=== PATIENT | female | born 2000 | race Caucasian/White ===

== ENCOUNTER 2019-04-06 02:40 | Emergency (ER) | payer MEDICAID ==
[~2019-04-06] VITALS: Ht 152.4 cm; Wt 45.0 kg
[2019-04-06] MEDS ORDERED: SODIUM CHLORIDE 0.9% 1,000 ML IV ONE (03:34)
[2019-04-06] MEDS ORDERED: ACETAMINOPHEN 325MG TABLET PO PRN (03:45)
[2019-04-06 04:12] LABS: BASOPHILS % 0.6 % (0.0-2.0); EOSINOPHILS % 1.6 % (0.0-5.0); HEMATOCRIT. 40.7 % (36.0-48.0); HEMOGLOBIN. 13.5 g/dL (12.0-16.0); LYMPHOCYTES % 27.4 % (20.0-50.0); MEAN CORPUSCULAR HEMOGLOBIN 30.1 pg (28.0-32.0); MEAN CORPUSCULAR VOLUME 90.9 fL (81.0-99.0); NEUTROPHILS % 63.4 % (40.0-76.0); PLATELET 389 x1000/uL (130-400); RED BLOOD CELL COUNT 4.48 mill/uL (4.2-5.4); RED CELL DISTRIBUTION WIDTH 13.9 % (11.6-14.6)
[2019-04-06 04:13] LABS: CHLORIDE 104 mEq/L (98-107)
[2019-04-06 04:58] LABS: CLARITY URINE TURBID (CLEAR); COLOR URINE YELLOW (YELLOW); KETONES URINE NEGATIVE (NEGATIVE); LEUKOCYTE ESTERASE URINE 2+ (NEGATIVE); NITRITE URINE NEGATIVE (NEGATIVE); OCCULT BLOOD URINE NEGATIVE (NEGATIVE); PH URINE >=9.0 (4.5-8.0); PROTEIN URINE 1+ (NEGATIVE); SPECIFIC GRAVITY URINE 1.017 (1.005-1.030); UROBILINOGEN URINE 0.2 E.U./dL (0.2-1.0)
[2019-04-06 06:47] VITALS: BP 119/70
[2019-04-11 07:07] LABS: CHLAMYDIA TRACHOMATIS NAA Negative (Negative); NEISSERIA GONORRHOEAE NAA Negative (Negative)
== END 2019-04-06 07:19 | disposition home or self-care (01) ==
LOC: ER 02:40
DX: R10.32 Left lower quadrant pain (principal); R11.0 Nausea; F12.10 Cannabis abuse, uncomplicated
CPT/HCPCS: 36415; 76830; 76856; 80053; 81003; 81025; 85025; 87077; 87086; 87210; 87491; 87591; 99284; J7030; Z7610

== ENCOUNTER 2020-09-14 22:38 | Emergency (ER) | payer MEDICAID ==
[~2020-09-14] VITALS: Ht 152.4 cm; Wt 45.0 kg
[2020-09-14] MEDS ORDERED: KETOROLAC 60MG/2ML VIAL IM STA (23:01)
[2020-09-14] MEDS ORDERED: VISCOUS LIDOCAINE 2% 15 ML UDC PO STA (23:01)
[2020-09-14] MEDS ORDERED: MAGNESIUM/ALUMINUM HYDROXIDE/SIMETHICONE 30ML UDC PO STA (23:01)
[2020-09-14 23:17] LABS: BASOPHILS % 0.7 % (0.0-2.0); EOSINOPHILS % 1.3 % (0.0-5.0); HEMATOCRIT. 34.2 % (36.0-48.0); HEMOGLOBIN. 11.7 g/dL (12.0-16.0); LYMPHOCYTES % 40.8 % (20.0-50.0); MEAN CORPUSCULAR HEMOGLOBIN 30.9 pg (28.0-32.0); MEAN CORPUSCULAR VOLUME 90.3 fL (81.0-99.0); MEAN PLATELET VOLUME 6.8 fl (7.4-10.4); MONOCYTES % 6.8 % (2.0-8.0); NEUTROPHILS % 50.4 % (40.0-76.0); PLATELET 322 x1000/uL (130-400); RED BLOOD CELL COUNT 3.79 mill/uL (4.2-5.4)
[2020-09-14 23:24] LABS: CHLORIDE 108 mEq/L (98-107)
[2020-09-15 00:07] VITALS: BP 111/58
[2020-09-15 00:50] LABS: CLARITY URINE CLOUDY (CLEAR); COLOR URINE YELLOW (YELLOW); KETONES URINE TRACE (NEGATIVE); LEUKOCYTE ESTERASE URINE NEGATIVE (NEGATIVE); NITRITE URINE NEGATIVE (NEGATIVE); OCCULT BLOOD URINE NEGATIVE (NEGATIVE); PROTEIN URINE NEGATIVE (NEGATIVE); UROBILINOGEN URINE 0.2 E.U./dL (0.2-1.0)
== END 2020-09-15 01:42 | disposition home or self-care (01) ==
LOC: ER 22:38
DX: R10.13 Epigastric pain (principal); F12.10 Cannabis abuse, uncomplicated
CPT/HCPCS: 36415; 71045; 76700; 80053; 81003; 81025; 83690; 85025; 85379; 93005; 96372; 99285; J1885

== ENCOUNTER 2021-02-22 15:15 | Emergency (ER) | payer MEDICAID ==
[~2021-02-22] VITALS: Ht 165.1 cm; Wt 89.0 kg
[2021-02-22 15:24] VITALS: BP 104/65
== END 2021-02-22 18:48 | disposition left against medical advice (07) ==
LOC: ER 15:15
DX: Z53.21 Procedure and treatment not carried out due to patient leaving prior to being seen by health care provider (principal)

== ENCOUNTER 2023-06-29 11:55 | Emergency (ER) | payer MEDICAID ==
[~2023-06-29] VITALS: Ht 152.4 cm; Wt 57.0 kg
[~2023-06-29 11:55] MED LIST: AMOX1TAB16 MT
[2023-06-29 12:02] VITALS: PULSE 119
[2023-06-29 12:14] VITALS: BP 128/90; RESP 16; TEMP 98.5; O2SAT 99
[2023-06-29] MEDS ORDERED: P50 MT (14:31)
[2023-06-29] MEDS ORDERED: TOPUD MT (14:31)
[2023-06-29] MEDS ORDERED: AZIT250T12 MT (14:31)
[2023-06-29] MEDS ORDERED: DEXT30SU17 MT (14:31)
[2023-06-29] MEDS ORDERED: ALBU90AE INH (14:32)
== END 2023-06-29 14:40 | disposition home or self-care (01) ==
LOC: ER 11:55
DX: U07.1 COVID-19 (principal)
CPT/HCPCS: 99283

== ENCOUNTER 2024-04-18 13:13 | Emergency (ER) | payer MEDICAID ==
[~2024-04-18] VITALS: Ht 152.4 cm; Wt 45.4 kg
[~2024-04-18 13:13] MED LIST changes: +ALBU90AE INH; +AZIT250T12 MT; +DEXT30SU17 MT; +P50 MT; +TOPUD MT
[2024-04-18 13:15] VITALS: BP 112/63; PULSE 105; RESP 16; TEMP 98.9; O2SAT 98
[2024-04-18] MEDS ORDERED: DEX2 MT (17:08)
[2024-04-18] MEDS ORDERED: TUSSL MT (17:08)
[2024-04-18] MEDS ORDERED: TOPUD MT (17:08)
[2024-04-18] MEDS ORDERED: IBUP-2028 MT (17:08)
[2024-04-18] MEDS ORDERED: CETI1TAB MT (17:08)
== END 2024-04-18 17:34 | disposition home or self-care (01) ==
LOC: ER 13:13
DX: B34.9 Viral infection, unspecified (principal)
CPT/HCPCS: 71045; 99283

== ENCOUNTER 2024-09-02 14:03 | Emergency (ER) | payer SELFPAY ==
[~2024-09-02] VITALS: Ht 152.4 cm; Wt 52.0 kg
[~2024-09-02 14:03] MED LIST changes: +CETI1TAB MT; +DEX2 MT; +IBUP-2028 MT; +TUSSL MT
[2024-09-02 14:08] VITALS: O2SAT 100
[2024-09-02 14:12] VITALS: BP 97/57; PULSE 98; RESP 16; TEMP 37; O2SAT 98
[2024-09-02] MEDS ORDERED: DOXY100C5 MT (14:26)
[2024-09-02] MEDS: CEFTRIAXONE SODIUM 500MG VIAL IM ONE (14:33)
== END 2024-09-02 14:50 | disposition home or self-care (01) ==
LOC: ER 14:03
DX: A54.9 Gonococcal infection, unspecified (principal); F12.90 Cannabis use, unspecified, uncomplicated; Z79.899 Other long term (current) drug therapy
CPT/HCPCS: 96372; 99283; J0696; Z7610